=== PATIENT | female | born 1990 | race Caucasian/White ===

== ENCOUNTER 2020-08-29 07:58 | Day surgery (SDC) | payer BC ==
[~2020-08-29] VITALS: Ht 188 cm; Wt 75.3 kg
[~2020-08-29 07:58] MED LIST: KRIL1CAP11 PO; MISCCAP PO; ZINC30TA6 PO
[2020-08-29] MEDS ORDERED: ceFAZolin 1GM/50ML 100 ML IV ONE (08:27)
[2020-08-29] MEDS ORDERED: PROPOFOL 10 MG/ML 20 ML IV ONE (08:54)
[2020-08-29] MEDS ORDERED: KETOROLAC TROMETH 30 MG/ML 1ML VIAL ONE (08:54)
[2020-08-29] MEDS ORDERED: fentaNYL CITRATE 100 MCG/2 ML VL ONE ×2 (08:54→10:03)
[2020-08-29] MEDS ORDERED: LIDOCAINE 2% (LOCAL ANESTH.) PF 5ml SDV ONE (08:54)
[2020-08-29] MEDS ORDERED: ONDANSETRON HCL 4 MG/2 ML VIAL ONE (08:54)
[2020-08-29] MEDS ORDERED: DexAMETHasone SOD PHOS 10MG/1ML VIAL INJ ONE (08:54)
[2020-08-29] MEDS ORDERED: MIDAZOLAM HCL 2MG/2ML 2ml VIAL (1mg/ml) ONE (08:54)
[2020-08-29] MEDS ORDERED: MEPERIDINE HCL (25 MG/ML) 1ML VIAL ONE (08:54)
[2020-08-29] MEDS ORDERED: GLYCOPYRROLATE 0.2 MG/ML 1ML VIAL ONE (08:54)
[2020-08-29] MEDS ORDERED: ePHEDrine SULFATE 50 MG/ML AMP IV ONE (09:32)
[2020-08-29] MEDS ORDERED: ONDANSETRON HCL 4 MG/2 ML VIAL IV PRN ×3 (10:30→10:45)
[2020-08-29] MEDS ORDERED: LACTATED RINGER'S 1,000 ML IV SCH ×2 (10:30→10:45)
[2020-08-29] MEDS ORDERED: HYDROmorphone HCL 2 MG/ML VL IV PRN (10:45)
[2020-08-29 11:15] VITALS: BP 118/74
== END 2020-08-29 11:35 | disposition home or self-care (01) ==
LOC: SUR 07:58
PROVIDERS: ATTEND Obstetrics & Gynecology
DX: Z30.431 Encounter for routine checking of intrauterine contraceptive device (principal); Z20.822 Contact with and (suspected) exposure to COVID-19; Z98.890 Other specified postprocedural states; Z79.899 Other long term (current) drug therapy; Z91.018 Allergy to other foods; Z91.030 Bee allergy status; J45.909 Unspecified asthma, uncomplicated
CPT/HCPCS: 58562; 86850; 86900; 86901; J0690; J1100; J1885; J2001; J2175; J2250; J2405; J2704; J3010; U0003